=== PATIENT | male | born 1990 | race Caucasian/White ===

== ENCOUNTER 2020-02-04 17:55 | Emergency (ER) | payer MEDICAID, SELFPAY ==
[2020-02-04 17:56] VITALS: BP 109/72; PULSE 95; RESP 16; TEMP 36.6; O2SAT 99; BMI 24.4
--- NOTE | 2020-02-04 18:18 | ED.VIS.GEN ---
History of Present Illness Chief Complaint: Abscess Informant: Patient Narrative: Left bicep swelling. Patient has had 2 weeks of left bicep swelling which is worsening. He denies IV drug abuse. He states the area is getting worse. He has not seen any medical professional for this. Not had any systemic signs or symptoms. He states he tried to smoke a joint to kill his pain earlier but it did not help. Past Medical History - Allergies and Home Meds Allergies/Adverse Reactions: Allergies ketorolac [From Toradol] Allergy (Verified 02/04/20 17:56) Anaphylaxis Penicillins [PCN] Allergy (Verified 02/04/20 17:56) Anaphylaxis Primary Care Physician: NOT,DEFINED [NON-STAFF] - Past Medical History: - - Denies Surgical History: noncontributory Lives: Alone Smoking Status: Current every day smoker Alcohol: Occasional Drugs: Marijuana Review of Systems General: Denies: Chills, Fever, Sweats Eyes: Denies: Visual changes - bilaterally, Diplopia ENT: Denies: Rhinorrhea, Sore throat Cardiovascular: Denies: Chest pain, Palpitations Respiratory: Denies: Dyspnea, Cough, Dyspnea on exertion Gastrointestinal: Denies: Abdominal pain, Nausea, Vomiting, Diarrhea, Melena, Hematochezia Genitourinary: Denies: Dysuria, Hematuria, Frequency Musculoskeletal: Reports: - - Pain and swelling in the left distal biceps region/antecubital fossa. Redness of this area. Skin: Reports: - - Described under musculoskeletal Neurological: Denies: Headache, Weakness Physical Exam Vital Signs/Narrative: Vital Signs Temp Pulse Resp BP Pulse Ox 02/04/20 17:56 97.8 F 95 16 109/72 99 Inital Vital Signs reviewed: Yes General: Unkempt, No Acute Distress Head: Normocephalic, Atraumatic Eyes: Perrl, EOMI ENT: Moist mucous membranes, No rhinorrhea Cardiovascular: Regular rate, Regular rhythm Respiratory: No distress, CTA bilaterally Extremities: - - Tenderness to palpation over the left distal biceps region as well as the antecubital fossa. There is redness overlying this area. Skin: - - Scribe under extremities Neurological: Alert, Oriented x3 Psychological: Normal affect, Normal Mood Diagnostic/Tx/Re-eval - Medical Decision Making She presents with abscess and swelling to the left upper arm and is been worsening for over 2 weeks. Other than feeling more tired than usual he does not have any systemic signs or symptoms. He is not had a fever. His exam is somewhat limited due to the swelling around the area to localize fluctuant mass. X-rays were negative and show no gas. I did perform CT of the upper extremity to localize an area of abscess versus simply cellulitic change. He did have a small abscess on the medial aspect of the biceps. Patient's arm was cleaned with Betadine and left to dry. Using a sterile set up incision and drainage was performed using 6 cc of lidocaine with epinephrine to size the area with good anesthesia achieved. 11 blade scalpel was used to make a 2 cm vertical incision over the area identified on CT. This area was deloculated. It was irrigated with 500 cc of sterile saline. Will be started on Bactrim outpatient. Was given 1 dose of vancomycin in the ED while awaiting his testing. Patient is given wound care instructions and return precautions. Impression: 1. Abscess with surrounding cellulitis ED Disposition - Plan for ED Patient: Disposition: Home or Assisted Living Instructions: ED Abscess Incision And Drainage Prescriptions: Smz/Tmp Ds [Bactrim Ds] 1 tab PO BID #20 tab Prescription Printed Referrals: NOT,DEFINED [NON-STAFF] -
--- NOTE | 2020-02-04 19:25 | RAD_ITS ---
STUDY: X-RAY - LEFT HUMERUS REASON FOR EXAM: Male, 29 years old. Abscess to left AC. Unknown cause. Fatigue. TECHNIQUE: 2 view(s) of the humerus. COMPARISON: Left elbow, 02/04/2020. FINDINGS: Normal visualized humerus. There is no demonstrated fracture or osseous destructive process. The shoulder and elbow are grossly intact. There is no demonstrated soft tissue abnormality. RAD/Humerus min 2 Views IMPRESSION: Normal x-ray examination of the humerus. Electronically Signed: Jarad Doshi DO at 19:56 EDT Tel [phone], Service support ,
--- NOTE | 2020-02-04 19:25 | RAD_ITS ---
STUDY: X-RAY - LEFT ELBOW REASON FOR EXAM: Male, 29 years old. Abscess before meals. Unknown cause. Fatigue. TECHNIQUE: 3 view(s) of the elbow. COMPARISON: None. FINDINGS: Normal visualized humerus, radius and ulna. Normal radiocapitellar and ulnotrochlear articulations. There is no acute fracture, dislocation or destructive osseous pathology. The soft tissue structures are unremarkable. RAD/Elbow min 3 Views IMPRESSION: Normal x-ray examination of the elbow. Electronically Signed: Jarad Doshi DO at 19:56 EDT Tel [phone], Service support ,
[2020-02-04] MEDS: Morphine 4 MG/ML Syringe IV ×2 (20:29→22:58)
[2020-02-04] MEDS: Ondansetron 4 MG/2 ML Vial IM (20:29)
[2020-02-04 20:38] LABS: Absolute Lymphocyte Count 2.13 X10^3/uL (0.83-4.51); Absolute Neutrophil Count 8.3 X10^3/uL (2.0-7.7); Basophil# 0.03 X10^3/uL; Basophil% 0.3 % (0-1); Eosinophil# 0.16 X10^3/uL; Eosinophils% 1.4 % (0-5); Hematocrit 43.1 % (40-54); Hemoglobin 14.2 g/dL (13.0-16.5); Lymphocyte # 2.13 X10^3/ul (4.0); Mean Corp Hgb Conc 32.9 g/dL (32-36); Mean Corpuscular Hgb 31.3 pg (27.0-32.0); Mean Corpuscular Volume 95.1 fL (80-94); Mean Platelet Vol. 9.5 fl (6.2-12.0); Monocyte# 1.19 X10^3/uL; Monocyte% 10.1 % (0-10); NRBC Flagged by Analyzer 0 % (0-5); Neutrophil # 8.26 X10^3/uL (2.7-7.7); Neutrophil % 69.9 % (47-70); Platelet Count 282 K/mm3 (150-450); RBC Distribution Width CV 11.6 % (11.6-14.6); RBC Distribution Width SD 40.2 fl (35.1-43.9); Red Blood Count 4.53 M/mm3 (4.6-6.2); White Blood Count 11.8 K/mm3 (4.4-11.0)
[2020-02-04 20:54] LABS: Anion Gap 2 (5-15); BUN 16 mg/dL (7-18); BUN/Creat Ratio 24.2 RATIO (10-20); Calcium,Total 8.5 mg/dL (8.5-10.1); Chloride 108 mmol/L (98-107); Creatinine, Serum 0.66 mg/dL (0.70-1.30); EST Glomerular Filtration Rate 150 mL/min (>60); Est Glom Filt Rate - Afr Amer 182 mL/min (>60); Estimated Creatinine Clearance 174.31 ml/min; Glucose 94 mg/dL (74-106); Potassium 4.2 mmol/L (3.5-5.1); Sodium Level 138 mmol/L (136-145)
--- NOTE | 2020-02-04 21:33 | CT_ITS ---
STUDY: CT ELBOW WITH IV CONTRAST: LEFT REASON FOR EXAM: Male, 29 years old. MID LT ARM PAIN AND SWELLING X 2 WEEKS,DENIES INJURY -- ? ABSCESS LT AC AND FATIGUE RADIATION DOSAGE (If Supplied By Facility): CTDIvol = ( 24.58 ) mGy, DLP = ( 892.49 ) mGycm. Individualized dose optimization techniques were used for this CT.? TECHNIQUE: Transaxial imaging was sagittal and coronal reconstruction following 100 mL of ISOVUE-370. COMPARISON: Elbow and humerus films of 02/04/2020 FINDINGS: There is a 1.6 x 1.2 x 2.1 cm focal enhancing fluid collection of the lower anterior arm above the antecubital fossa, 4.5 cm above the elbow joint line which is located in the subcutaneous compartment. There is substantial circumferential edematous changes in the subcutaneous compartment of the arm and forearm around the elbow. Negative for underlying muscular mass. Negative for underlying osteolytic or blastic bone lesion. Negative for joint effusion. Negative for foreign body. CT/Extremity Upper WITH Contrast IMPRESSION: 1.6 x 1.2 x 2.1 cm focal enhancing fluid collection of the lower anterior arm just above the antecubital fossa consistent with abscess 4.5 cm above the elbow joint located in the subcutaneous compartment with substantial circumferential edematous changes throughout the subcutaneous compartment of the arm and forearm around the elbow. Negative for muscular mass or abscess, osteolytic or blastic bone lesion, joint effusion or foreign body. Electronically Signed: Abi Oleary MD at 22:23 EDT , Service support ,
--- NOTE | 2020-02-04 22:00 | ED.RN ---
RN INFORMED PATIENT OF NEED FOR URINE SAMPLE. PT DISPLAYS UNDERSTANDING BUT REFUSES TO ATTEMPT.
[2020-02-04 22:12] VITALS: BP 116/81; PULSE 70; RESP 13; O2SAT 98
[2020-02-04 22:26] LABS: Prothrombin Time (Protime)PT. 12.4 SECONDS (11.7-14.9)
[2020-02-04 22:27] LABS: Partial Thromboplast Time 30.7 Seconds (24.1-36.2)
[2020-02-04 22:33] LABS: ALB/GLOB Ratio 0.7 RATIO (0.9-2.4); AST(SGOT) 12 U/L (15-37); Alanine Aminotransfer ALT/SGPT 33 U/L (16-61); Albumin, Serum 3.4 g/dL (3.2-5.0); Alkaline Phosphatase 88 U/L (45-117); Globulin 4.6 g/dL (2.2-4.2)
[2020-02-04 22:49] LABS: Lactic Acid 0.9 mmol/L (0.4-1.9)
[2020-02-04 23:06] LABS: Bacteria 0 SEEN /hpf (None Seen); Mucous, Urine 0 SEEN /hpf (<or=2+); Red Blood Cells-Urine 0 SEEN /hpf (0-5); Squamous Epithelial Cells - UA 0 SEEN /hpf (0-5); White Blood Cells 0 SEEN /hpf (0-5)
[2020-02-04 23:19] VITALS: PULSE 83
[2020-02-04 23:28] LABS: Color, Urine Yellow (Yellow); Glucose, Dipstick Normal (Normal); Ketone-Dipstick Negative (Negative); Leukocyte Esterase-Dipstick Negative /ul (Negative); Nitrite-Dipstick Negative (Negative); Occult Blood-Urine Negative /ul (Negative); Protein-Dipstick Negative (Negative); Urine Bilirubin Dipstick Negative (Negative); Urine Clarity Clear (Clear); Urine Urobilinogen Normal (Normal)
[2020-02-04 23:45] VITALS: BP 116/81; PULSE 76; RESP 13; O2SAT 100
--- NOTE | 2020-02-06 07:50 | ED.RN ---
DR LONDON REVIEWED THE CHART, PT APPROPRIATELY TREATED FOR BLOOD CULTURE RESULTS
== END 2020-02-05 00:02 | disposition home or self-care (01) ==
PROVIDERS: Emergency Provider Student in an Organized Health Care Education/Training Program
DX: L02.414 Cutaneous abscess of left upper limb (principal); L03.114 Cellulitis of left upper limb; F17.200 Nicotine dependence, unspecified, uncomplicated
CPT/HCPCS: 10060; 73060; 73080; 73201; 80053; 81001; 83605; 85025; 85610; 85730; 87040; 87086; 87149; 96361; 96365; 96366; 96372; 96375; 96376; 99284; J7030; J7050; Q9967; A4216; J2405

== ENCOUNTER 2020-05-10 04:16 | Emergency (ER) | payer MEDICAID, SELFPAY ==
[2020-05-10 04:18] VITALS: BP 109/89; PULSE 111; RESP 17; TEMP 36.9; O2SAT 97; BMI 21.6
[2020-05-10] MEDS: LORazepam 2 MG/ML Syringe IM (04:40)
--- NOTE | 2020-05-10 04:41 | ED.DCSUM_ITS ---
History of Present Illness Chief Complaint: Substance Abuse Informant: Patient Narrative: Patient presents thinking he is in drug withdrawal. 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 Denis. He states I am waiting for her to call me in. In the meantime he continues to use daily, he states that started with trying to treat his anxiety. His last use was almost 24 hours ago. He states that he is feeling very shaky, anxious, walking off balance, achy all over especially his back, occasional abdominal cramping. No vomiting, diarrhea, fevers, no recent illness. He is homeless and at the local senior living at this time and was brought by EMS from there. History is very limited, because he is speaking very quickly, is edentulous, and difficult to understand. Past Medical History - Allergies and Home Meds Allergies/Adverse Reactions: Allergies ketorolac [From Toradol] Allergy (Verified 05/10/20 04:23) Anaphylaxis Penicillins [PCN] Allergy (Verified 05/10/20 04:23) Anaphylaxis Primary Care Physician: Care Physician,No Primary [Primary Care Provider] - Lives: Homeless Smoking Status: Current every day smoker Drugs: Heroin, - - Methamphetamine Review of Systems General: Denies: Chills, Fever, Sweats Eyes: Denies: Visual changes - bilaterally, Diplopia ENT: Denies: Rhinorrhea, Sore throat Cardiovascular: Denies: Chest pain, Palpitations Respiratory: Denies: Dyspnea, Cough, Dyspnea on exertion Gastrointestinal: Denies: Abdominal pain, Nausea, Vomiting, Diarrhea, Melena, Hematochezia Genitourinary: Denies: Dysuria, Hematuria, Frequency Musculoskeletal: Reports: Myalgias, Back pain. Denies: Extremity Pain Skin: Denies: Rash, Wounds Neurological: Reports: Headache - off and on, - - off-balance when walking. Denies: Weakness, Numbness Psych: Reports: Anxiety. Denies: Suicidal thoughts Physical Exam Vital Signs/Narrative: Vital Signs Temp Pulse Resp BP Pulse Ox 05/10/20 04:18 98.4 F 111 H 17 109/89 H 97 Inital Vital Signs reviewed: Yes General: Well nourished, Well developed, No Acute Distress Head: Normocephalic, Atraumatic Eyes: Perrl, EOMI - 4-5mm pupils ENT: Moist mucous membranes, No rhinorrhea Neck: Supple, Nontender Cardiovascular: Regular rate, Regular rhythm, No murmurs, Tachycardia - mild Respiratory: No distress, CTA bilaterally, Chest nontender Abdomen: Soft, Nontender, Nondistended, Normal bowel sounds Back: Normal Inspection. Negative for: CVA tenderness Extremities: Nontender, No edema Skin: Normal color, No rash, No Trauma Neurological: Alert, Oriented x3, Cranial nerves II-XII grossly intact, Normal Strength, Normal Sensation, Normal Gait Psychological: Agitated - Significantly increased psychomotor activity. Able to hold a cup with either hand and drink from it, but then sets it down on the floor so that he does not spill it since he is so shaky. Diagnostic/Tx/Re-eval - Medical Decision Making I think the patient's main issue here is drug dependence and withdrawal. He was given Ativan to help with his symptoms and agitation, I suspect that he would tolerate Ativan given his history of drug abuse, so he was given 2 mg IM, which sedated him more than expected, but not dangerously. He was observed until the end of shift, his vital signs improved including his tachycardia, and the plan will be to continue observing him until he wakes up and discharged him home if able to ambulate on his own safely. ED Disposition - Plan for ED Patient: Disposition: Home or Assisted Living Diagnosis: Drug withdrawal Instructions: ED Drug Abuse Referrals: [facility] [STAFF PHYSICIAN] - As soon as possible
[2020-05-10 06:24] VITALS: PULSE 96; O2SAT 94
[2020-05-10 09:00] VITALS: BP 109/89; PULSE 81; RESP 18; O2SAT 99
== END 2020-05-10 09:01 | disposition home or self-care (01) ==
PROVIDERS: Emergency Provider Emergency Medicine
DX: F11.23 Opioid dependence with withdrawal (principal); F15.23 Other stimulant dependence with withdrawal; F41.9 Anxiety disorder, unspecified; Z59.0 Homelessness; F17.200 Nicotine dependence, unspecified, uncomplicated
CPT/HCPCS: 96372; 99284; A4216

== ENCOUNTER 2020-09-16 16:19 | Emergency (ER) | payer MEDICAID, SELFPAY ==
[2020-09-16 16:20] VITALS: BP 132/63; PULSE 90; RESP 18; TEMP 36.4; O2SAT 100; BMI 21.5
--- NOTE | 2020-09-16 17:27 | EKG12_ITS ---
Test Reason : SUICIDAL Blood Pressure : / mmHG Vent. Rate : 078 BPM Atrial Rate : 078 BPM P-R Int : 160 ms QRS Dur : 082 ms QT Int : 356 ms P-R-T Axes : 076 098 065 degrees QTc Int : 405 ms Normal sinus rhythm Rightward axis Poor R wave progression Borderline ECG Confirmed by ODETTE PEÑA, TAE ([id number]), editor in chief newspaper NICK HYDE ([id number]) on 09/20/2020 2:55:34 PM Referred By: FEROZ/DALLAS Confirmed By:TAE PINO MD
[2020-09-16 17:55] LABS: Absolute Lymphocyte Count 1.56 X10^3/uL (0.83-4.51); Absolute Neutrophil Count 5.7 X10^3/uL (2.0-7.7); Basophil# 0.03 X10^3/uL; Basophil% 0.4 % (0-1); Eosinophil# 0.07 X10^3/uL; Eosinophils% 0.8 % (0-5); Hematocrit 46.2 % (40-54); Hemoglobin 15.5 g/dL (13.0-16.5); Lymphocyte # 1.56 X10^3/ul (0.83-4.51); Lymphocyte % 18.9 % (19-41); Mean Corp Hgb Conc 33.5 g/dL (32-36); Mean Corpuscular Hgb 32.3 pg (27.0-32.0); Mean Corpuscular Volume 96.3 fL (80-94); Mean Platelet Vol. 9.5 fl (6.2-12.0); Monocyte# 0.89 X10^3/uL; Monocyte% 10.8 % (0-10); NRBC Flagged by Analyzer 0 % (0-5); Neutrophil % 68.9 % (47-70); Platelet Count 249 K/mm3 (150-450); RBC Distribution Width CV 11.9 % (11.6-14.6); RBC Distribution Width SD 42.4 fl (35.1-43.9); White Blood Count 8.3 K/mm3 (4.4-11.0)
--- NOTE | 2020-09-16 18:00 | CM.ED ---
Addendum entered by Faith Matos 09/18/20 10:56: Note completed by Faith GUERREROCHARLY Original Note: Social Work Referral Referral Source: [facility] Referral reason: Suicidal NIKKI (Ampoule Filler) met with patient and completed assessment. Patient needs inpatient psychiatric placement. MD agreed. SW called [facility] and made referral for inpatient psych (alcohol and drug treatment and mental health). NIKKI faxed referral form to [place]. ([facility]) SW spoke to patient and explained that he needed inpatient psychiatric treatment. He denied heroin use. He told this medical technical writer apparently I am not the only one that needs psychiatric treatment. SW received call back from [facility]. They can accept him. NIKKI got name of admitting MD and who to call for report. NIKKI filled out transfer sheet and provided it to MD for signature. NIKKI gave RN name of facilty and RN to RN information. NIKKI advised patient he is going to [facility] for drug and mental health treatment. line technician and MD as well as patient's nurse were all updated that patient is going to [facility]. NIKKI called [facility] back and advised of patient's time of release so they could plan for staffing needs. Plan: Patient was discharged to inpatient psychiatric facilty, [facility] due to suicidal ideation.
[2020-09-16 18:17] LABS: Anion Gap 3 (5-15); BUN 13 mg/dL (7-18); BUN/Creat Ratio 16.9 RATIO (10-20); Chloride 106 mmol/L (98-107); Creatinine, Serum 0.77 mg/dL (0.70-1.30); EST Glomerular Filtration Rate 125 mL/min (>60); Est Glom Filt Rate - Afr Amer 152 mL/min (>60); Estimated Creatinine Clearance 139.09 ml/min; Glucose 104 mg/dL (74-106); Potassium 3.9 mmol/L (3.5-5.1); Sodium Level 138 mmol/L (136-145)
--- NOTE | 2020-09-16 18:33 | EX.ED.VIS.PS ---
HPI HPI - Psych History of Present Illness Chief Complaint: Suicidal Informant: patient Onset/Context/Timing Onset: Month(s) Conflict: - (Patient states his girlfriend left him) Timing: Continuous Worsened by: Situational factors Associated Symptoms Associated Symptoms - Psych: Positive for Depressed, Change in Eating, Change in sleeping, Decreased Interest and Suicidal Thoughts; Negative for Visual Hallucinations and Auditory Hallucinations Specific plan (suicidal thought): Patient denies any specific plan Narrative Narrative: Patient presents with suicidal ideations that have been getting worse over the past month. Patient states his girlfriend left him which caused him to feel depressed and suicidal. Patient did denies any specific plan for suicide to me. utility worker forge reported that patient told him that he did have some guns and he knew where they were. Patient denies any visual or auditory hallucinations. Patient admits to decreased appetite and patient states she has not slept in the last 6 days. [facility] Medical History Anxiety Asthma Depression Substance abuse Home Medications NK 09/16/20 [History Last Taken Unknown] Allergy/AdvReac Type Severity Reaction Status Date / Time ketorolac [From Toradol] Allergy Anaphylaxis Verified 09/16/20 16:22 Penicillins [PCN] Allergy Anaphylaxis Verified 09/16/20 16:22 Surgical History History of appendectomy Social History Smoking Status: Current every day smoker [facility] ED Constitutional Constitutional ED: Denies chills or fever(s) Eyes Eyes: Denies blurry vision or change in vision ENT ENT ED: Denies rhinorrhea or sore throat Cardiovascular Cardiovascular: Reports chest pain; Denies palpitations Respiratory/Chest Respiratory/Chest: Denies cough or dyspnea Gastrointestinal Gastrointestinal: Denies nausea or vomiting Genitourinary Genitourinary ED: Denies dysuria or hematuria Musculoskeletal Musculoskeletal: Reports back pain and neck pain Integumentary Denies abscess or rash Neurologic Neurologic: Denies headache(s) or weakness Psychiatric Psychiatric: Reports depression and suicidal thoughts Allergic/Immunologic Allergic/Immunologic ED: Denies mouth swelling or urticaria EXAM Physical Exam Const Vital Signs: 09/16/20 16:20 09/16/20 18:49 09/16/20 19:00 Temperature 97.6 F L Temperature Source Temporal Pulse Rate 90 Respiratory Rate 18 14 16 Blood Pressure 132/63 H Blood Pressure Mean 86 Pulse Ox 100 Oxygen Delivery Method Room Air 09/16/20 21:05 09/16/20 22:21 Temperature Temperature Source Pulse Rate 72 Respiratory Rate 16 16 Blood Pressure 128/74 H Blood Pressure Mean 92 Pulse Ox 99 Oxygen Delivery Method Positive well nourished and well developed General Appearance ED: well developed HEENT normocephalic and atraumatic Neck supple and no JVD Resp normal respiratory effort and clear to auscultation bilaterally Cardio no murmurs Rate: regular rate Rhythm: regular rhythm GI non-tender and non-distended Auscultation: normoactive bowel sounds Palpation: soft Extremity normal to inspection General Extremety ED: Negative for edema or tenderness General Extremity: Negative for edema Neuro oriented x3, CN's II-XII intact bilaterally and no sensory deficits noted Sensorium / Orientation: alert Motor Exam: strength 5/5 throughout Psych mental status grossly normal Activity / Motor Behavior: avoids eye contact Speech: minimal and soft Mood & Affect: depressed and flat affect Thought Content: suicidality MDM MDM MDM Narrative Medical decision making narrative: EKG was obtained. On my interpretation, it showed a normal sinus rhythm with a rate of 78. ID interval, QRS interval, and QTc intervals were all normal. Otis was normal. There are no acute ST or T wave changes. CBC was normal. Basic metabolic profile was normal. Urinalysis does not show any evidence of urinary tract infection. Urine toxin was positive for amphetamines and cannabinoids. Serum alcohol level was normal. Social work was in to evaluate the patient. She was able to place the patient in a psychiatric facility. Patient will be transferred there. [place] slip was placed on the chart. Patient understood and was agreeable with the plan. All questions were answered. Lab Data Labs: Laboratory Results - last 24 hr 09/16/20 09/16/20 09/16/20 17:35 17:35 17:35 WBC 8.3 RBC 4.80 Hgb 15.5 Hct 46.2 MCV 96.3 H MCH 32.3 H MCHC 33.5 RDW Std Deviation 42.4 RDW Coeff of Bonifacio 11.9 Plt Count 249 MPV 9.5 Immature Gran % (Auto) 0.200 Neut % (Auto) 68.9 Lymph % (Auto) 18.9 L [place] % (Auto) 10.8 H Eos % (Auto) 0.8 Baso % (Auto) 0.4 Absolute Neuts (auto) 5.7 Absolute Lymphs (auto) 1.56 Nucleated RBC % 0 Sodium 138 Potassium 3.9 Chloride 106 Carbon Dioxide 29.0 Anion Gap 3 L BUN 13 Creatinine 0.77 Estim Creat Clear Calc 139.09 Est GFR (MDRD) Af Amer 152 Est GFR (MDRD) Non-Af 125 BUN/Creatinine Ratio 16.9 Glucose 104 Calcium 9.0 Urine Color Urine Clarity Urine pH Ur Specific [place] Urine Protein Urine Glucose (UA) Urine Ketones Urine Occult Blood Urine Nitrite Urine Bilirubin Urine Urobilinogen Ur Leukocyte Esterase Urine RBC Urine WBC Ur Squamous Epith Cells Urine Bacteria Urine Mucus Urine Opiates Screen Urine Methadone Screen Ur Barbiturates Screen Ur Phencyclidine Scrn Ur Amphetamines Screen U Methamphetamin-MDMA U Benzodiazepines Scrn Urine Cocaine Screen U Cannabinoids Screen Ur Drug Screen Comment Ethyl Alcohol 6.0 09/16/20 09/16/20 20:05 20:05 WBC RBC Hgb Hct MCV MCH MCHC RDW Std Deviation RDW Coeff of [place] Plt Count MPV Immature Gran % (Auto) Neut % (Auto) Lymph % (Auto) [place] % (Auto) Eos % (Auto) Baso % (Auto) Absolute Neuts (auto) Absolute Lymphs (auto) Nucleated RBC % Sodium Potassium Chloride Carbon Dioxide Anion Gap BUN Creatinine Estim Creat Clear Calc Est GFR (MDRD) Af Amer Est GFR (MDRD) Non-Af BUN/Creatinine Ratio Glucose Calcium Urine Color Yellow Urine Clarity Clear Urine pH 6.0 Ur Specific [place] 1.015 Urine Protein Negative Urine Glucose (UA) Normal Urine Ketones Negative Urine Occult Blood 50 H Urine Nitrite Negative Urine Bilirubin Negative Urine Urobilinogen Normal Ur Leukocyte Esterase 25 H Urine RBC 10-25 SEEN Urine WBC 0-5 SEEN Ur Squamous Epith Cells 0 SEEN Urine Bacteria 0 SEEN Urine Mucus 0 SEEN Urine Opiates Screen NEGATIVE Urine Methadone Screen NEGATIVE Ur Barbiturates Screen NEGATIVE Ur Phencyclidine Scrn NEGATIVE Ur Amphetamines Screen POSITIVE H U Methamphetamin-MDMA NEGATIVE U Benzodiazepines Scrn NEGATIVE Urine Cocaine Screen NEGATIVE U Cannabinoids Screen POSITIVE H Ur Drug Screen Comment Ethyl Alcohol EKG Initial EKG: Attestation: I personally reviewed and interpreted this EKG as follows: Interpretation: Sinus Rhythm (78) and No Acute Injury Pattern Discharge Plan Triage Chief Complaint: Suicidal ED Provider: Allen Perez Dx/Rx/DC Orders Clinical Impression: Depression with suicidal ideation Prescriptions: No Action NK RF: 0 Primary Care Provider: Care Physician,No Primary Referrals: Care Physician,No Primary [Primary Care Provider] - Disposition Disposition: Psychiatric Hospital or Unit Discharge Location: [facility] Discharge Date/Time: 09/16/20 22:22
[2020-09-16 18:49] VITALS: RESP 14
[2020-09-16 19:00] VITALS: RESP 16
--- NOTE | 2020-09-16 19:01 | CASEMGMT ---
SOCIAL WORK ASSESSMENT [facility] ? Reason for Consult: [facility] stated that they a phone call from a watch train assembler regarding patient. Faith said that patient reported that he is suicidal and attempted this morning but the rope ?wasn?t strong enough?. Faith said that they advised to bring the patient to [place] ED. ?Faith said that the watch train assembler felt comfortable enough bringing patient to the ED for evaluation. ? Chief Compliant: Patient reports that he is ?suicidal?. Patient reports a current feeling g suicidal. Patient confirmed that he was trying to strangle himself, but it broke this am. Patient said that ?I am exhausted. I have not slept?. ? Marital/Social History: Single. Patient reports he was supposed to get ?a couple of months ago? but him and his fianc??, Bhakti, broke up one month ago. ? Living Situation: Patient is homeless. He reports he slept under a bridge last night. He reported that him and his ex were planning to get a house. ? Support/Resources: Patient reports he support is his ?ex? Bhakti. Patient was asked about family and he said, ?they are all ?. ? History: None ? Education and Employment History: Patient reports he graduated [employer]. He reports no college. He reports no IEP but states he has difficulty with comprehension. Patient reports no issues with reading. ?Patient reports he is not employed. He was unable to tell this news writer the last time he was employed. 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 ? Mental Health Treatment/History: Patient reports no previous Mental health treatment. Patient reports No mental health counseling. Patient reports no inpatient psychiatric hospitalization. ? Triggers/Stressors: Patient said that his symptoms began 1 month ago when his fianc??, Bhakit, broke up with him. Patient said that his stressors are ?not seeing her?. Patient said ?I see her. I see her face everywhere?. SW asked where patient ?sees? Bhakti and he said ?in different places. glass reflection?. ? Coping Skills: ?myself?? and reports ?nothing that helps? ? Abuse Issues: Denied ? Substance Abuse History: Patient reports use of heroin with last use 2 days ago. He reports using 1 gram of heroin a day. Patient was asked about substance abuse treatment and he said, ?I would if I had a problem.? ? Risk to Self/Others: Suicidal- Patient reports he is still suicidal and when he attempted to strange himself, he was thinking ?maybe if I was , I would feel better?. Homicidal-None No reported violence to self, others or objects. Patient reports no previous suicide attempts. ? SW asked about access to guns and patient said ?yeah?. When asked where the guns where he said ?places? ? Mental Status Exam: Orientation-Patient knew year, name and place. He said he had ?no idea? abut the date. Memory- impaired ? Appearance/General Behavior: Disheveled, unclean, calm Mood/Affect: depressed. Patient said that his mood is ?very depressed.? Communication Pattern: Responds to questions. Had to be encouraged to stay awake for questions. Mumbled at times. Thought Process: Answered questions. No evidence of AH/VH and reports no AH/VH. General Intellectual Functioning: Average Judgment: Poor ? Assessment: ? Patient said that he went [facility] this morning to try to see his ex-fianc?, Bhakti. He said, ?I was hoping I would see her?. Patient said, ?I would apologize for what I did wrong?. SW asked what patient did wrong and he said, ?I don?t know?.? Patient stated that he has had the symptoms for 1 month and ?nothing makes sense? Patient reports he is ?very depressed?. Patient reports anxiety and feeling he ?can?t breathe?. Patient said ?I feel it happening now. like an elephant is on my chest?. Patient reports traumatic stress but refused to elaboration. Patient said that he holds his anger ?in? but reports agitation. Patient reports impulsivity but was unable to identify as to what he is impulsive about. Patient was asked about AH/VH and he said, ?all the time? and referenced his ex-fianc?. Patient denied mood swings. Patient said he does not have substance abuse or issues and said, ?I just use it to mask? and stated he did not feel he needed assistance for substance abuse. Patient said that he has not slept for 6 days. Patient said that his stressors are ?life?. Patient reports no significant health issues. Patient said that he slept under a bridge last night. ? Later patient reports use of meth which he stated was 2 days ago. ? ? Plan: Referral to inpatient psychiatric unit for substance abuse and psychiatric treatment. ? Faith LOVE
[2020-09-16 20:27] LABS: Bacteria 0 SEEN /hpf (None Seen); Mucous, Urine 0 SEEN /hpf (<or=2+); Squamous Epithelial Cells - UA 0 SEEN /hpf (0-5)
[2020-09-16 20:37] LABS: Amphetamine Urine VISTA POSITIVE (<1000 ng/mL); Barbiturate Urine VISTA NEGATIVE (< 200 ng/mL); Benzodiazepine Urine VISTA NEGATIVE (< 200 ng/mL); Cocaine Urine VISTA NEGATIVE (< 300 ng/mL); Ecstacy Urine VISTA NEGATIVE (< 500 ng/mL); Methadone Urine VISTA NEGATIVE (< 300 ng/mL); PCP Urine VISTA NEGATIVE (< 25 ng/mL); THC Urine VISTA POSITIVE (< 50 ng/mL); Vista UDS pH Range 6
[2020-09-16 20:41] LABS: Color, Urine Yellow (Yellow); Glucose, Dipstick Normal (Normal); Ketone-Dipstick Negative (Negative); Leukocyte Esterase-Dipstick 25 /ul (Negative); Nitrite-Dipstick Negative (Negative); Occult Blood-Urine 50 /ul (Negative); Protein-Dipstick Negative (Negative); Specific Gravity, Urine 1.015 (1.002-1.030); Urine Bilirubin Dipstick Negative (Negative); Urine Clarity Clear (Clear); Urine Urobilinogen Normal (Normal)
[2020-09-16 20:48] LABS: Red Blood Cells-Urine 10-25 SEEN /hpf (0-5); White Blood Cells 0-5 SEEN /hpf (0-5)
[2020-09-16 21:05] VITALS: BP 128/74; PULSE 72; RESP 16; O2SAT 99
[2020-09-16 22:21] VITALS: RESP 16
== END 2020-09-16 22:22 ==
LOC: ED 18:17
PROVIDERS: Emergency Provider Emergency Medicine
DX: F32.9 Major depressive disorder, single episode, unspecified (principal); R45.851 Suicidal ideations; F41.9 Anxiety disorder, unspecified; J45.909 Unspecified asthma, uncomplicated; F17.200 Nicotine dependence, unspecified, uncomplicated
CPT/HCPCS: 80048; 80307; 81001; 82077; 85025; 87426; 93005; 99285

== ENCOUNTER 2022-12-28 19:58 | Emergency (ER) | payer MEDICAID, SELFPAY ==
[2022-12-28 19:59] VITALS: BP 123/90; PULSE 98; RESP 18; TEMP 36.8; O2SAT 100; BMI 22.3
--- NOTE | 2022-12-28 22:45 | EX.ED.DYSGE1 ---
HPI History of Present Illness Chief Complaint: Abscess Informant: patient Narrative Narrative: Presents with abscess to his left upper arm. He states he tried to inject methamphetamines. He knew it did not go in the right spot so he pulled the needle out. It sounds like this occurred 2 or 3 days ago. It is now swollen and red. He denies fevers chills nausea or vomiting. He has never had problems with heart valve infections. He has had abscesses drained in the past. He is eating and drinking normally. [facility] Medical History Anxiety Asthma Depression Substance abuse Home Medications doxycycline monohydrate 100 mg capsule 100 mg PO BID #20 CAPSULES 12/28/22 [Rx Last Taken Unknown] Allergy/AdvReac Type Severity Reaction Status Date / Time ketorolac [From Toradol] Allergy Anaphylaxis Verified 12/28/22 20:01 Penicillins [PCN] Allergy Anaphylaxis Verified 12/28/22 20:01 Surgical History History of appendectomy Social History Smoking Status: Current every day smoker tobacco type: cigarettes ROS ROS ED Constitutional Constitutional ED: Denies chills, fever(s), subjective or sweats ENT ENT ED: Denies rhinorrhea Cardiovascular Cardiovascular: Denies chest pain, palpitations, paroxysmal nocturnal dyspnea or racing heartbeat Respiratory/Chest Respiratory/Chest: Denies cough, dyspnea, dyspnea on exertion or paroxysmal nocturnal dyspnea Gastrointestinal Gastrointestinal: Denies nausea or vomiting Musculoskeletal Musculoskeletal: Denies myalgias Integumentary Reports abscess Neurologic Neurologic: Denies headache(s), paresthesias or weakness Hematologic/Lymphatic Hematologic/Lymphatic: Denies easy bleeding, easy bruising or lymphadenopathy Allergic/Immunologic Allergic/Immunologic ED: Denies urticaria EXAM Physical Exam Narrative Exam Narrative: Patient awake alert sitting in the room comfortable. HEENT shows no trauma. Mucous membranes are moist. Neck is supple. Heart is regular. Not tachycardic. I hear no murmur. No muffled tones. Lungs are clear. No pain with a deep breath. Saturations are normal 100% on room air showing no hypoxia. Abdomen is soft nontender. Extremities show no deformity. See skin exam below. Skin: Overlying the left anterior upper arm at the distal bicep area a little proximal to the antecubital fossa is an area of erythema. There seems to be a soft fluctuant area that is about 1 x 2 cm. There is about 2 cm of surrounding erythema. But it does not track up into the axilla at this time. I did check pulses distally and capillary refill and sensation and they are all normal. But this does appear to be cutaneous abscess that would benefit from draining. Const Vital Signs: 12/28/22 19:59 Temperature 98.3 F Temperature Source Temporal Pulse Rate 98 Respiratory Rate 18 Blood Pressure 123/90 H Blood Pressure Mean 101 Pulse Ox 100 Oxygen Delivery Method Room Air MDM MDM MDM Narrative Medical decision making narrative: Discussed options with the patient. I explained that drainage would be appropriate numbness and he should resolve sooner. I will treat him with doxycycline. He evidently has anaphylaxis to penicillin is not sure if he can tolerate cephalosporins. He thinks he might not be able to. We will avoid this due to the risk. Procedure: Incision and drainage of abscess: The area around the abscess was sterilely prepped and draped. It was scrubbed with Shyasmine-Clens. It was anesthetized with a total of 5 cc of 1% lidocaine locally. Patient tolerated this reasonably well. It was then scrubbed again. An 11 blade was used to incise over the center soft portion of the abscess avoiding the tattoo as per the patient's request. We got a good release of purulent material. Hemostats were used to break up any loculations. We milked the area. I then irrigated it and broke up loculations again. Irrigated it once again. We then placed a gauze into this. Explained patient the plan of the care and removal of gauze in 2 to 3 days. We discussed reasons to return that would include worsening swelling, pain, fevers, vomiting or any other concerns. Discharge Plan Triage Chief Complaint: Abscess ED Provider: Kenneth Suggs Dx/Rx/DC Orders Clinical Impression: Drug abuse, IV, Cellulitis of arm, left, Encounter for incision and drainage procedure, Abscess of arm, left Instructions: ED Abscess Incision And Drainage Prescriptions: New doxycycline monohydrate 100 mg capsule 100 mg PO BID Qty: 20 0RF Primary Care Provider: Care Physician,No Primary Referrals: Sonido Ferreira MD [Med Staff - Set Up Technician] - 3-5 Days if not improving Care Physician,No Primary [Primary Care Provider] - Disposition Disposition: Home, Self Care
[2022-12-28] MEDS: Lidocaine 1% (20 ml mdv) 20 ML Vial INFILT (22:52)
[2022-12-28] MEDS: Doxycycline 100 MG CAPSULE PO (22:52)
[2022-12-28] MEDS: Ibuprofen 200 MG Tablet 400 MG PO (23:33)
== END 2022-12-28 23:47 | disposition home or self-care (01) ==
PROVIDERS: Emergency Provider Emergency Medicine; Visit Provider Emergency Medicine
DX: L02.414 Cutaneous abscess of left upper limb (principal); F15.10 Other stimulant abuse, uncomplicated; L03.114 Cellulitis of left upper limb; J45.909 Unspecified asthma, uncomplicated; F32.A Depression, unspecified; F41.9 Anxiety disorder, unspecified; F17.210 Nicotine dependence, cigarettes, uncomplicated; Z88.0 Allergy status to penicillin
CPT/HCPCS: 10060; 99283

== ENCOUNTER 2023-01-09 17:02 | Emergency (ER) | payer MEDICAID, SELFPAY ==
[2023-01-09 17:02] VITALS: BP 127/88; PULSE 99; RESP 18; TEMP 36.1; O2SAT 100; BMI 22.3
--- NOTE | 2023-01-09 19:13 | CT_ITS ---
INDICATION: neck pain EXAMINATION: CT CERVICAL SPINE - CT Spine Cervical W/O Contrast Injection TECHNIQUE: Helically acquired images were obtained of the cervical spine. 2D reformatted images were reviewed. A radiation dose optimization technique was used for this scan. IV Contrast dosage and agent: None. COMPARISON: None. FINDINGS: VERTEBRAE: No fracture or traumatic subluxation. No discrete lytic or blastic abnormality. Normal alignment. Normal craniocervical junction and cervicothoracic junction. DISCS and SPINAL CANAL: Disc heights are preserved. No critical stenosis. NECK SOFT TISSUES: No prevertebral soft tissue swelling. There is no cervical adenopathy. LUNG APICES: Clear. CT/Spine Cervical without Contras IMPRESSION: No evidence of acute cervical spinal fracture or spondylolisthesis. Electronically Signed: Kwame Johnston MD at 20:07 EDT ,
[2023-01-09] MEDS: HYDROcodone Bitartrate/Apap 5/325 Tablet PO (19:34)
--- NOTE | 2023-01-09 19:41 | CT_ITS ---
EXAMINATION : Head CT w/out contrast HISTORY : head injury COMPARISON : None. TECHNIQUE : Multiple contiguous axial images were obtained from the skull base to the vertex without intravenous contrast. A radiation dose optimization technique was used for this scan. FINDINGS : The ventricles and sulci are normal in size. There is no evidence for acute intracranial hemorrhage, mass effect, or midline shift. There is no extra-axial fluid collection. There is normal smith-white differentiation, without CT evidence of acute ischemia or infarct. The skull base and calvarium are unremarkable. The orbits are unremarkable. The paranasal sinuses are clear. The mastoid air cells are well-aerated. The soft tissues are unremarkable. CT/Brain/Head without Contrast IMPRESSION: No acute intracranial abnormality. Electronically Signed: Kwame Johnston MD at 20:06 EDT ,
--- NOTE | 2023-01-09 19:45 | RAD_ITS ---
INDICATION: pain EXAMINATION/TECHNIQUE: X-RAY - LEFT XR Shoulder Min 2 Views 4 VIEWS COMPARISON: No relevant prior comparison study available FINDINGS: SOFT TISSUES: Mild soft tissue swelling of the shoulder. No radiopaque foreign body. BONES/JOINTS: Acute nondisplaced fracture of the distal third clavicle.. Normal alignment. Preservation of the joint space.. No sclerotic or destructive changes observed. RAD/Shoulder min 2 Views IMPRESSION: Acute nondisplaced fracture of the distal third clavicle.. Electronically Signed: Kwame Johnston MD at 20:18 EDT ,
--- NOTE | 2023-01-09 21:09 | CM.ED ---
Social Work Note Referral Source: case find Referral Reason: no PCP SW met with patient and introduced herself and role as [facility] Elderly Companion. Patient lying on hospital bed and agreeable to speak with SW. SW inquired about patient's insurance and current PCP. Patient verified insurance and reports no current PCP. SW provided patient with a list of local PCPs in network with patient's insurance and accepting new patients. SW also reviewed [facility] resource list as patient is currently staying at [facility]. Patient falling asleep during interaction but is receptive towards lists and voiced no other needs. SW remains available if needs arise. Maritza Duckworth DYE WORKER, [place]
[2023-01-09 21:11] VITALS: RESP 16
--- NOTE | 2023-01-09 22:39 | EDS_ITS ---
HPI HPI - Fall History of Present Illness Chief Complaint: Fall Narrative Narrative: Patient lives at the [facility]. He reports he fell off the top bunk. He does not remember this because he was asleep. He complains of left shoulder pain and left clavicular pain. He also hit his head and is complaining some neck pain. No paresthesias. He is not on any blood thinners. He denies any significant medical history PFSH PFSH Medical History Anxiety Asthma Depression Substance abuse Home Medications doxycycline monohydrate 100 mg capsule 100 mg PO BID #20 CAPSULES 12/28/22 [Rx Last Taken Unknown] hydrocodone-acetaminophen 5-325mg 5mg-325mg 1 tab PO Q4H PRN PRN Pain 3 days #12 TABLETS 01/09/23 [Rx Last Taken Unknown] Allergy/AdvReac Type Severity Reaction Status Date / Time ketorolac [From Toradol] Allergy Anaphylaxis Verified 01/09/23 17:04 Penicillins [PCN] Allergy Anaphylaxis Verified 01/09/23 17:04 Surgical History History of appendectomy History of skin graft Social History Smoking Status: Current every day smoker tobacco type: cigarettes ROS ROS ED Constitutional Constitutional ED: Denies chills, fever(s) or sweats Eyes Eyes: Denies blurry vision or change in vision ENT ENT ED: Denies ear pain or sore throat Cardiovascular Cardiovascular: Denies chest pain, palpitations or racing heartbeat Respiratory/Chest Respiratory/Chest: Denies cough, dyspnea or sputum Gastrointestinal Gastrointestinal: Denies abdominal pain, constipation, diarrhea, nausea or vomiting Genitourinary Genitourinary ED: Denies dysuria, hematuria or urinary frequency Musculoskeletal Musculoskeletal: Reports neck pain and other Details: Left shoulder pain ; Denies arthralgias or myalgias Integumentary Denies abscess, Abrasions or rash Neurologic Neurologic: Reports headache(s); Denies paresthesias or weakness Psychiatric Psychiatric: Denies anxiety, depression, suicidal ideation or suicidal thoughts Endocrine Endocrinology: Denies polydipsia or polyuria EXAM Physical Exam Const Vital Signs: 01/09/23 17:02 01/09/23 18:22 01/09/23 21:11 Temperature 97 F L Temperature Source Temporal Pulse Rate 99 Respiratory Rate 18 16 Respiratory Effort Normal Respiratory Depth Normal Respiratory Pattern Normal Blood Pressure 127/88 H Blood Pressure Mean 101 Pulse Ox 100 Oxygen Delivery Method Room Air Room Air Positive well nourished General Appearance ED: NAD HEENT Reports normocephalic and TM's normal bilaterally atraumatic Eyes PERRL and EOMs intact bilaterally Chest Wall Chest Narrative: Tenderness to palpation over left distal clavicle. No skin tenting. No bruising Resp normal respiratory effort and no retractions Cardio regular rate and regular rhythm Extremity Extremity Narrative: Left shoulder is nontender to palpation. The shoulder is intact. Pain elicited with motion of the distal clavicle. Neuro oriented x3 and CN's II-XII intact bilaterally Sensorium / Orientation: alert Motor Exam: strength 5/5 throughout Psych mental status grossly normal MDM MDM MDM Narrative Medical decision making narrative: 32-year-old male with fall from his bunk bed which is on top apparently. Complaint of headache and neck pain as well as left shoulder pain. Patient given [place]. CT brain and cervical spine are negative. CT of the left shoulder shows a nondisplaced left distal clavicular fracture my interpretation. Radiologist interprets this and agrees. He will be given pain medication for home. Patient has sling. He is given orthopedic follow-up. Return precaution discussed. Impression: 1 fall 2. Closed head injury 3. Cervical strain 4. Left clavicle fracture Lab Data Attestation: I reviewed the patient's lab results. Radiography Diagnostic Testing: Clinical Impression(s) from Imaging Studies Cervical Spine CT 01/09/23 19:13 IMPRESSION: No evidence of acute cervical spinal fracture or spondylolisthesis. Electronically Signed: Kwame Johnston MD at 20:07 EDT , Brain CT 01/09/23 19:41 IMPRESSION: No acute intracranial abnormality. Electronically Signed: Kwame Johnston MD at 20:06 EDT , Shoulder X-Ray 01/09/23 19:45 IMPRESSION: Acute nondisplaced fracture of the distal third clavicle.. Electronically Signed: Kwame Johnston MD at 20:18 EDT , Discharge Plan Triage Chief Complaint: Fall ED Provider: Yehuda Sarabia Dx/Rx/DC Orders Instructions: ED Fracture, Clavicle Prescriptions: New hydrocodone-acetaminophen 5-325 mg tablet 1 tab PO Q4H PRN PRN (Reason: Pain) 3 Days Qty: 12 0RF No Action doxycycline monohydrate 100 mg capsule 100 mg PO BID Qty: 20 0RF Primary Care Provider: Care Physician,No Primary Referrals: Ralf Edge DO [Med Staff - Active Staff] - 3-5 Days suture removal Care Physician,No Primary [Primary Care Provider] - Disposition Disposition: Home, Self Care Discharge Date/Time: 01/09/23 21:12
== END 2023-01-09 21:12 | disposition home or self-care (01) ==
PROVIDERS: Emergency Provider Student in an Organized Health Care Education/Training Program; Visit Provider Student in an Organized Health Care Education/Training Program
DX: S42.032A Displaced fracture of lateral end of left clavicle, initial encounter for closed fracture (principal); S16.1XXA Strain of muscle, fascia and tendon at neck level, initial encounter; S09.90XA Unspecified injury of head, initial encounter; W19.XXXA Unspecified fall, initial encounter; W06.XXXA Fall from bed, initial encounter; Y93.84 Activity, sleeping; Y92.89 Other specified places as the place of occurrence of the external cause; F32.A Depression, unspecified; F41.9 Anxiety disorder, unspecified; F17.210 Nicotine dependence, cigarettes, uncomplicated; Z79.899 Other long term (current) drug therapy
CPT/HCPCS: 70450; 72125; 73030; 99283

== ENCOUNTER 2023-03-18 05:49 | Emergency (ER) | payer MEDICAID, SELFPAY ==
[2023-03-18 05:50] VITALS: BP 127/78; PULSE 84; RESP 20; TEMP 36.1; O2SAT 99; BMI 21.4
--- NOTE | 2023-03-18 06:01 | EDS_ITS ---
HPI History of Present Illness Chief Complaint: Flank Pain Informant: patient Onset/Context/Timing Onset: Days (5) Context: Gradual Onset Timing: Intermittent Quality: Cramping Location: Right flank Worsened by: Ambulation Relieved by: Rest Narrative Narrative: Patient presents with right flank pain that has been getting worse over the last 5 days. Patient states it is intermittent. Patient states it feels like it is cramping. Patient states it is worse with ambulation and better with rest. Patient denies any fevers or chills. Patient states he had some discolored urine recently. Patient denies any fevers but admits to some subjective chills. Patient admits to a recent cough. Patient also admits to some rhinorrhea. Patient denies any nausea or vomiting. [facility] Medical History Anxiety Asthma Depression Substance abuse Home Medications NK 03/18/23 [History Last Taken Unknown] Allergy/AdvReac Type Severity Reaction Status Date / Time ketorolac [From Toradol] Allergy Anaphylaxis Verified 01/09/23 17:04 Penicillins [PCN] Allergy Anaphylaxis Verified 01/09/23 17:04 Surgical History History of appendectomy History of skin graft Social History Smoking Status: Current every day smoker tobacco type: cigarettes ROS ROS ED Constitutional Constitutional ED: Denies chills or fever(s) Eyes Eyes: Denies blurry vision or change in vision ENT ENT ED: Reports rhinorrhea; Denies sore throat Cardiovascular Cardiovascular: Denies chest pain or palpitations Respiratory/Chest Respiratory/Chest: Reports cough; Denies dyspnea Gastrointestinal Gastrointestinal: Denies nausea or vomiting Genitourinary Genitourinary ED: Denies dysuria or hematuria Musculoskeletal Musculoskeletal: Reports back pain; Denies neck pain Integumentary Denies abscess or rash Neurologic Neurologic: Reports headache(s); Denies weakness Allergic/Immunologic Allergic/Immunologic ED: Denies mouth swelling or urticaria EXAM Physical Exam Const Vital Signs: 03/18/23 05:50 Temperature 96.9 F L Temperature Source Temporal Pulse Rate 84 Respiratory Rate 20 H Blood Pressure 127/78 H Blood Pressure Mean 94 Pulse Ox 99 Oxygen Delivery Method Room Air Positive well nourished and well developed General Appearance ED: well developed and NAD HEENT Reports moist mucous membranes Neck supple and no JVD Chest Wall inspection of chest normal and palpation of chest normal Resp normal respiratory effort and clear to auscultation bilaterally Cardio regular rate and regular rhythm GI non-tender and non-distended Palpation: soft Back/Spine General Back: CVA tenderness right Extremity normal to inspection General Extremety ED: Negative for edema or tenderness General Extremity: Negative for edema Neuro oriented x3, CN's II-XII intact bilaterally and no sensory deficits noted Sensorium / Orientation: alert Motor Exam: strength 5/5 throughout Psych mental status grossly normal Skin no rashes or lesions noted, no wounds and skin turgor normal MDM MDM MDM Narrative Medical decision making narrative: Differential diagnosis includes ureteral calculus, pyelonephritis, electrolyte abnormality, and musculoskeletal strain CT scan of the abdomen pelvis will be obtained to assess for ureteral calculus. Urinalysis will be obtained to assess for urinary tract infection and hematuria. CBC will be obtained to assess for leukocytosis and anemia. Basic metabolic profile will be obtained to assess for electrolyte abnormality and renal function. Lab Data Attestation: I reviewed the patient's lab results. Lab results narrative: See history was reviewed and was essentially within normal limits. Basic metabolic profile was reviewed. BUN was slightly elevated at 24 and glucose was slightly elevated at 111. The remainder is within normal limits. Labs: Laboratory Results - last 24 hr 03/18/23 06:30 WBC 7.6 RBC 4.39 L Hgb 13.1 Hct 39.7 L MCV 90.4 MCH 29.8 MCHC 33.0 RDW Std Deviation 40.7 RDW Coeff of Bonifacio 12.5 Plt Count 198 MPV 9.8 Immature Gran % (Auto) 0.400 Neut % (Auto) 58.7 Lymph % (Auto) 29.1 [place]idan % (Auto) 10.0 Eos % (Auto) 1.3 Baso % (Auto) 0.5 Absolute Neuts (auto) 4.5 Absolute Lymphs (auto) 2.21 Nucleated RBC % 0 Sodium 141 Potassium 3.8 Chloride 109 H Carbon Dioxide 30.0 Anion Gap 2 L BUN 24 H Creatinine 0.76 Estim Creat Clear Calc 136.68 Est GFR (MDRD) Af Amer 152 Est GFR (MDRD) Non-Af 126 BUN/Creatinine Ratio 31.7 H Glucose 111 H Calcium 8.2 L Radiography Diagnostic Testing: Clinical Impression(s) from Imaging Studies Abdomen/Pelvis CT 03/18/23 06:16 IMPRESSION: 1. 2 punctate nonobstructing left renal calculi. 2. No hydronephrosis or obstructing ureteral stone. 3. Previous appendectomy. 4. No acute intra-abdominal abnormality. Electronically Signed: Elian Duong MD at 7:16 EST , CT scan of the abdomen pelvis was obtained. There is no ureteral calculus. There are nonobstructing left renal calculi. There is no acute abnormality. This was interpreted by the radiologist and was also independently reviewed by myself. Treatment and Re-Evaluation :: Patient was given IV fluids. Patient was advised of his findings. Patient was instructed to take Tylenol or ibuprofen as needed for pain. Patient was advised that this is most likely musculoskeletal pain. Patient was instructed to follow-up with his primary care physician in 5 to 7 days. Patient understood and was agreeable with the plan. All questions were answered. Discharge Plan Triage Chief Complaint: Flank Pain ED Provider: Allen Perez Dx/Rx/DC Orders Clinical Impression: Right flank pain Instructions: ED Flank Pain, Uncertain Cause Prescriptions: No Action NK Primary Care Provider: Care Physician,No Primary Referrals: Savanah Damon [Non-Staff] - 5-7 Days Care Physician,No Primary [Primary Care Provider] - Activity Restrictions/Additional Instructions: Take Tylenol or ibuprofen as needed for pain. Disposition Disposition: Home, Self Care
--- NOTE | 2023-03-18 06:16 | CT_ITS ---
EXAM: CT ABDOMEN AND PELVIS WITHOUT INTRAVENOUS CONTRAST CLINICAL INDICATION: Right flank pain TECHNIQUE: Helically acquired images were obtained of the abdomen and pelvis without intravenous contrast. This CT exam was performed using one or more of the following dose reduction techniques: automated exposure control, adjustment of the mA and/or kV according to patient size, and/or use of iterative reconstruction technique. RADIATION DOSE: Total DLP: 289.57 mGy-cm. COMPARISON: No relevant prior studies available. FINDINGS: LOWER THORAX: Visualized lung bases are clear. No coronary artery calcification is visualized. No significant pericardial effusion. ABDOMEN: LIVER: Unremarkable. Homogeneous. GALLBLADDER AND BILE DUCTS: Unremarkable. No calcified gallstones. No gallbladder distention or wall edema. No intra- or extrahepatic biliary ductal dilation. PANCREAS: Unremarkable. No focal cystic mass. SPLEEN: Unremarkable. Normal size without focal cystic or solid mass. ADRENALS: Unremarkable. No nodules. KIDNEYS AND URETERS: Kidneys are normal in size and shape. 2 punctate nonobstructing stones are noted within the left intrarenal collecting system. No right renal calculi. No hydronephrosis, perirenal stranding or obstructing ureteral stone identified. STOMACH AND BOWEL: Unremarkable. No stomach or bowel distention. No focal inflammatory change. PELVIS: APPENDIX: Previous appendectomy. BLADDER: The partially distended urinary bladder is unremarkable. REPRODUCTIVE: Unremarkable as visualized. No mass. ABDOMEN and PELVIS: INTRAPERITONEAL SPACE: Unremarkable. No ascites or other fluid collection. No free air. BONES/JOINTS: Unremarkable. No suspicious lytic or blastic abnormality. No acute osseous abnormality. SOFT TISSUES: Unremarkable. No discrete abdominal or pelvic wall hernia. VASCULATURE: Numerous calcified phleboliths are incidentally noted within the lower pelvis. LYMPH NODES: Unremarkable. No enlarged lymph nodes. CT/Abdomen/Pelvis without Cont IMPRESSION: 1. 2 punctate nonobstructing left renal calculi. 2. No hydronephrosis or obstructing ureteral stone. 3. Previous appendectomy. 4. No acute intra-abdominal abnormality. Electronically Signed: Elian Duong MD at 7:16 EST ,
[2023-03-18 06:43] LABS: Absolute Lymphocyte Count 2.21 X10^3/uL (0.83-4.51); Absolute Neutrophil Count 4.5 X10^3/uL (2.0-7.7); Basophil# 0.04 X10^3/uL; Basophil% 0.5 % (0-1); Eosinophils% 1.3 % (0-5); Hematocrit 39.7 % (40-54); Hemoglobin 13.1 g/dL (13.0-16.5); Lymphocyte # 2.21 X10^3/ul (0.83-4.51); Lymphocyte % 29.1 % (19-41); Mean Corpuscular Hgb 29.8 pg (27.0-32.0); Mean Corpuscular Volume 90.4 fL (80-94); Mean Platelet Vol. 9.8 fl (6.2-12.0); Monocyte# 0.76 X10^3/uL; NRBC Flagged by Analyzer 0 % (0-5); Neutrophil # 4.46 X10^3/uL (2.7-7.7); Neutrophil % 58.7 % (47-70); Platelet Count 198 K/mm3 (150-450); RBC Distribution Width CV 12.5 % (11.6-14.6); RBC Distribution Width SD 40.7 fl (35.1-43.9); Red Blood Count 4.39 M/mm3 (4.6-6.2); White Blood Count 7.6 K/mm3 (4.4-11.0)
[2023-03-18 06:57] LABS: Anion Gap 2 (5-15); BUN 24 mg/dL (7-18); BUN/Creat Ratio 31.7 RATIO (10-20); Calcium,Total 8.2 mg/dL (8.5-10.1); Chloride 109 mmol/L (98-107); Creatinine, Serum 0.76 mg/dL (0.70-1.30); EST Glomerular Filtration Rate 126 mL/min (>60); Est Glom Filt Rate - Afr Amer 152 mL/min (>60); Estimated Creatinine Clearance 136.68 ml/min; Glucose 111 mg/dL (74-106); Potassium 3.8 mmol/L (3.5-5.1); Sodium Level 141 mmol/L (136-145)
[2023-03-18] MEDS: 0.9% Normal Saline (1000mL) 1,000 ML 1000 ML IV (07:10)
[2023-03-18 07:26] VITALS: BP 127/79; PULSE 62; RESP 15; O2SAT 98
== END 2023-03-18 07:27 | disposition home or self-care (01) ==
PROVIDERS: Emergency Provider Emergency Medicine; Visit Provider Emergency Medicine
DX: R10.9 Unspecified abdominal pain (principal); R05.9 Cough, unspecified; M54.9 Dorsalgia, unspecified; F17.210 Nicotine dependence, cigarettes, uncomplicated
CPT/HCPCS: 74176; 80048; 85025; 99282

== ENCOUNTER 2023-05-15 14:06 | Emergency (ER) | payer MEDICAID, SELFPAY ==
[2023-05-15 14:07] VITALS: BP 135/98; PULSE 89; RESP 16; TEMP 36.4; O2SAT 98; BMI 21.7
--- NOTE | 2023-05-15 16:05 | EDS_ITS ---
HPI <BART Nayak - Last Filed: 05/15/23 18:46> History of Present Illness Chief Complaint: Lower Extremity Injury PFSH <BART Nayak - Last Filed: 05/15/23 18:46> [facility] Medical History Anxiety Asthma Depression Substance abuse Home Medications nystatin 100,000 unit/gram topical powder 1 applic topical BID #30 grams 05/15/23 [Rx Last Taken Unknown] Allergy/AdvReac Type Severity Reaction Status Date / Time ketorolac [From Toradol] Allergy Anaphylaxis Verified 05/15/23 14:09 Penicillins [PCN] Allergy Anaphylaxis Verified 05/15/23 14:09 Surgical History History of appendectomy History of skin graft Social History Smoking Status: Current every day smoker tobacco type: cigarettes ROS <BART Nayak - Last Filed: 05/15/23 18:46> ROS ED Constitutional Constitutional ED: Denies chills or fever(s) Cardiovascular Cardiovascular: Denies chest pain Respiratory/Chest Respiratory/Chest: Denies cough or dyspnea Gastrointestinal Gastrointestinal: Denies abdominal pain, nausea or vomiting Musculoskeletal Musculoskeletal: Reports other Details: pain to bilateral feet Integumentary Denies Abrasions Neurologic Neurologic: Denies paresthesias or weakness EXAM <BART Nayak - Last Filed: 05/15/23 18:46> Physical Exam Const Vital Signs: 05/15/23 14:07 Temperature 97.6 F L Temperature Source Temporal Pulse Rate 89 Respiratory Rate 16 Blood Pressure 135/98 H Blood Pressure Mean 110 Pulse Ox 98 Oxygen Delivery Method Room Air Positive well nourished, well developed and no apparent distress General Appearance ED: well developed HEENT Reports normocephalic and head/scalp atraumatic Mouth ED: Yes moist mucous membranes normal Eyes PERRL and EOMs intact bilaterally Neck full ROM and supple Chest Wall inspection of chest normal Resp normal respiratory effort and clear to auscultation bilaterally Cardio regular rate and regular rhythm GI soft to palpation, non-tender, non-distended and no masses Back/Spine normal ROM and normal to inspection Extremity full ROM Extremity Narrative: Erythema to the plantar aspect of the bilateral feet. Some peeling to the bottom of the right foot and in between the toes bilaterally. No open wounds, bleeding, no purulent discharge, no cellulitis or signs of infection. Bilateral DP pulse 2+, good capillary refill, sensation intact Neuro oriented x3, CN's II-XII intact bilaterally, moves all extremities, no focal motor deficits and no sensory deficits noted Sensorium / Orientation: awake and alert Psych mental status grossly normal and thought process normal <Dr. Allen Perez, - Last Filed: 05/16/23 00:24> Physical Exam Const Vital Signs: 05/15/23 14:07 Temperature 97.6 F L Temperature Source Temporal Pulse Rate 89 Respiratory Rate 16 Blood Pressure 135/98 H Blood Pressure Mean 110 Pulse Ox 98 Oxygen Delivery Method Room Air MDM <BART Nayak - Last Filed: 05/15/23 18:46> [facility] MDM Narrative Medical decision making narrative: Patient presenting for what appears to be tinea pedis to his bilateral feet. There are no open wounds to his feet or signs of infection, there is no bleeding. Patient reports that he is currently homeless and at times his feet get wet but he now has more heavy-duty boots to wear. He will be be given nystatin powder. I have also given him a PCP referral. He will be discharged in stable condition and is comfortable with plan. <Dr. Allen Perez, - Last Filed: 05/16/23 00:24> [facility] Treatment and Re-Evaluation Narrative: I have personally performed a face to face assessment of the patient and have reviewed the SONIA Note. I performed a substantive portion of the visit including all aspects of the following. My pabon findings include: History: Patient presents with a rash and pain to his feet that have been getting worse for the past several months. Patient states it is gradually g etting worse. Patient states his pain is worse with ambulation. Patient states his feet chronically get wet because he is homeless. Patient describes his pain as sharp. Patient admits to some tingling but denies any weakness. Patient denies any fevers or chills. Patient denies any discharge or drainage. Exam: Vital signs are stable. Patient is afebrile. Patient is in no acute distress. Examination of the feet reveals some mild tenderness over the toes. There is cracking of the skin between the digits of the feet bilaterally. There is no erythema. There is no discharge or drainage noted. Sensation was intact to light touch in all digits. Capillary refill was less than 2 seconds in all digits. Medical Decision Making: Patient was advised that this is most likely tinea pedis. Patient was given a prescription for topical nystatin. Patient was instructed to try to keep his feet as dry as possible. Patient was instructed to follow-up with a primary care physician in 5 to 7 days. Patient understood and was agreeable with the plan. All questions were answered. Discharge Plan Triage Chief Complaint: Lower Extremity Injury ED Midlevel Provider: Jazmín Vincent ED Provider: Allen Perez Dx/Rx/DC Orders Clinical Impression: Tinea pedis Instructions: ED Athlete's Foot Prescriptions: New nystatin 100,000 unit/gram powder 1 applic topical BID Qty: 30 0RF Primary Care Provider: Care Physician,No Primary Referrals: Fany Jerez MD [Med Staff - Active Staff] - As Needed Care Physician,No Primary [Primary Care Provider] - Activity Restrictions/Additional Instructions: Return for any worsening of your symptoms. Please follow-up with PCP. Disposition Disposition: Home, Self Care Discharge Date/Time: 05/15/23 17:32
== END 2023-05-15 17:32 | disposition home or self-care (01) ==
PROVIDERS: Emergency Provider Emergency Medicine; Visit Provider Emergency Medicine
DX: B35.3 Tinea pedis (principal); F17.210 Nicotine dependence, cigarettes, uncomplicated; R21 Rash and other nonspecific skin eruption; Z59.00 Homelessness unspecified; J45.909 Unspecified asthma, uncomplicated
CPT/HCPCS: 99282

== ENCOUNTER 2023-05-23 03:12 | Emergency (ER) | payer MEDICAID, SELFPAY ==
[2023-05-23 03:13] VITALS: BP 156/107; PULSE 85; RESP 15; TEMP 36.7; O2SAT 97; BMI 22.1
[2023-05-23 04:21] LABS: Absolute Lymphocyte Count 1.79 X10^3/uL (0.83-4.51); Absolute Neutrophil Count 2.1 X10^3/uL (2.0-7.7); Basophil# 0.02 X10^3/uL; Basophil% 0.5 % (0-1); Eosinophil# 0.08 X10^3/uL; Eosinophils% 1.9 % (0-5); Hematocrit 42.6 % (40-54); Hemoglobin 13.6 g/dL (13.0-16.5); Lymphocyte # 1.79 X10^3/ul (0.83-4.51); Lymphocyte % 41.5 % (19-41); Mean Corp Hgb Conc 31.9 g/dL (32-36); Mean Platelet Vol. 10.4 fl (6.2-12.0); Monocyte# 0.31 X10^3/uL; Monocyte% 7.2 % (0-10); NRBC Flagged by Analyzer 0 % (0-5); Neutrophil % 48.7 % (47-70); Platelet Count 168 K/mm3 (150-450); RBC Distribution Width CV 12.8 % (11.6-14.6); RBC Distribution Width SD 43.8 fl (35.1-43.9); Red Blood Count 4.53 M/mm3 (4.6-6.2); White Blood Count 4.3 K/mm3 (4.4-11.0)
--- NOTE | 2023-05-23 04:35 | EX.ED.DYSGE1 ---
HPI History of Present Illness Chief Complaint: Abd Pain Informant: patient Narrative Narrative: Patient is a 32-year-old male with past medical history of anxiety depression asthma and substance abuse. He states that he drank water out of a [place] earlier today and then roughly 8 hours later began with generalized abdominal discomfort and bouts of nausea and vomiting. States there is diarrhea associated with this. He denies any blood or discoloration to the emesis or diarrhea. He denies any known sick contacts. He states that he is concerned about a potential infection based on his exposure and therefore comes in for evaluation [facility] Medical History Anxiety Asthma Depression Substance abuse Home Medications nystatin 100,000 unit/gram topical powder 1 applic topical BID #30 grams 05/15/23 [Rx Last Taken Unknown] dicyclomine 20 mg tablet 20 mg PO 4X/DAY PRN PRN Abdominal pain/spasm #28 tabs 05/23/23 [Rx Last Taken Unknown] ondansetron 4 mg disintegrating tablet 4 mg PO TID PRN nausea and vomiting #21 tabs 05/23/23 [Rx Last Taken Unknown] triamcinolone acetonide 0.1 % lotion 1 applic topical TID #60 mL 05/23/23 [Rx Last Taken Unknown] Allergy/AdvReac Type Severity Reaction Status Date / Time ketorolac [From Toradol] Allergy Anaphylaxis Verified 05/15/23 14:09 Penicillins [PCN] Allergy Anaphylaxis Verified 05/15/23 14:09 Surgical History History of appendectomy History of skin graft Social History Smoking Status: Current every day smoker tobacco type: cigarettes ROS ROS ED Constitutional Constitutional ED: Denies chills or fever(s) ENT ENT ED: Denies sore throat Cardiovascular Cardiovascular: Denies chest pain Respiratory/Chest Respiratory/Chest: Denies cough or dyspnea Gastrointestinal Gastrointestinal: Reports abdominal pain, diarrhea, nausea, vomiting and other Genitourinary Genitourinary ED: Denies dysuria Musculoskeletal Musculoskeletal: Denies myalgias Integumentary Reports rash Neurologic Neurologic: Denies headache(s) Hematologic/Lymphatic Hematologic/Lymphatic: Denies easy bleeding or easy bruising EXAM Physical Exam Const Vital Signs: 05/23/23 03:13 Temperature 98.0 F Temperature Source Temporal Pulse Rate 85 Respiratory Rate 15 Blood Pressure 156/107 H Blood Pressure Mean 123 Pulse Ox 97 Oxygen Delivery Method Room Air Positive well nourished and well developed General Appearance ED: well developed; Negative for pallor HEENT Reports moist mucous membranes HEENT Narrative: No tongue or lip swelling. No oral lesions No airway edema or compromise No signs of infection noted in the posterior pharynx Eyes PERRL and EOMs intact bilaterally General Eye ED: Negative for scleral icterus Neck supple Neck Narrative: No nuchal rigidity or meningeal signs Resp normal respiratory effort and clear to auscultation bilaterally Cardio regular rate and regular rhythm Rate: other Other Details: Heart is regular rate and rhythm without murmurs rubs or gallops Radial and carotid pulses are equal and symmetric GI non-distended GI Narrative: Abdomen is soft and nondistended with normal active bowel sounds. There is mild diffuse pain on palpation without voluntary guarding or rigidity No pulsatile mass or fluid wave Auscultation: normoactive bowel sounds Palpation: soft Extremity normal to inspection Neuro oriented x3, CN's II-XII intact bilaterally and no sensory deficits noted Sensorium / Orientation: alert Motor Exam: strength 5/5 throughout Psych mental status grossly normal Skin Skin Narrative: Patient has a punctate erythematous rash across his lower abdomen near the area of his belt buckle and there are other similar regions along the bilateral forearms and in the lower legs. No involvement of the palms or soles. No pustule changes noted. The lesions do seem to be associated with hair follicles. General Skin Exam: Negative for jaundice or pallor MDM MDM MDM Narrative Medical decision making narrative: Patient presented to the ER hypertensive otherwise with stable vitals. Abdomen is soft and nonsurgical. Therefore I felt no need for emergent imaging studies. With the patient reporting generalized abdominal discomfort as well as bouts of nausea vomiting diarrhea there is concern for viral infection such as COVID or influenza versus [place] or rotavirus. There is also concern for biliary colic versus pancreatitis as he states he drank out of a fresh water stream there is concern for Giardia. Secondary to his basic labs were obtained and a stool study was ordered. Labs revealed no clinically significant findings. The patient had no bouts of vomiting or diarrhea while in the ER. On reevaluation he is resting comfortably and his abdomen remains soft and nonsurgical. Therefore at this time I do not feel there is need for further workup or imaging studies and he is otherwise safe for discharge. History & Record Review Discussion w/independent historian: Patient Lab Data Attestation: I reviewed the patient's lab results. Labs: Laboratory Results - last 24 hr 05/23/23 04:06 WBC 4.3 L RBC 4.53 L Hgb 13.6 Hct 42.6 MCV 94.0 MCH 30.0 MCHC 31.9 L RDW Std Deviation 43.8 RDW Coeff of [place] 12.8 Plt Count 168 MPV 10.4 Immature Gran % (Auto) 0.200 Neut % (Auto) 48.7 Lymph % (Auto) 41.5 H [place] % (Auto) 7.2 Eos % (Auto) 1.9 Baso % (Auto) 0.5 Absolute Neuts (auto) 2.1 Absolute Lymphs (auto) 1.79 Nucleated RBC % 0 Sodium 140 Potassium 3.9 Chloride 106 Carbon Dioxide 29.0 Anion Gap 5 BUN 15 Creatinine 0.76 Estim Creat Clear Calc 140.40 Est GFR (MDRD) Af Amer 152 Est GFR (MDRD) Non-Af 126 BUN/Creatinine Ratio 19.8 Glucose 86 Calcium 8.9 Total Bilirubin 0.50 Direct Bilirubin 0.16 AST 31 ALT 36 Alkaline Phosphatase 85 Total Protein 8.0 Albumin 3.9 Globulin 4.1 Lipase 44 Discharge Plan Triage Chief Complaint: Abd Pain ED Provider: Yrn Schroeder Dx/Rx/DC Orders Clinical Impression: Nonspecific abdominal pain, Folliculitis Instructions: Understanding Folliculitis, ED Gastroenteritis, Viral (Adult) Prescriptions: New ondansetron 4 mg tablet,disintegrating 4 mg PO TID PRN (Reason: nausea and vomiting) Qty: 21 0RF dicyclomine 20 mg tablet 20 mg PO 4X/DAY PRN PRN (Reason: Abdominal pain/spasm) Qty: 28 0RF triamcinolone acetonide 0.1 % lotion 1 applic topical TID Qty: 60 1RF No Action nystatin 100,000 unit/gram powder 1 applic topical BID Qty: 30 0RF Primary Care Provider: Care Physician,No Primary Referrals: Terry Hagen MD [STAFF PHYSICIAN] - Care Physician,No Primary [Primary Care Provider] - Activity Restrictions/Additional Instructions: Please return to the ER should you have any further concerns and use the medication as prescribed to control your symptoms Disposition Disposition: Home, Self Care Capacity [employer] Reflex Medical hold order details:: IF a medical hold is selected below, a suggested order for a MEDICAL HOLD will reflex upon signing the document. Next of kin: [place] law dictates a PRIORITY LIST for identifying legal decision-maker/legal next of kin in the following order (LNOK): 1st: The patient?s legal guardian, if any 2nd: The patient's spouse (if status is questionable, consult Risk Management) 3rd: The patient?s adult child(jer) (majority, if multiple children) 4th: The patient?s parents 5th: The patient?s adult siblings (majority, if multiple children siblings)
[2023-05-23] MEDS: 0.9% Normal Saline (1000mL) 1,000 ML 999 ML IV (04:38)
[2023-05-23 04:39] LABS: AST(SGOT) 31 U/L (15-37); Alanine Aminotransfer ALT/SGPT 36 U/L (16-61); Albumin, Serum 3.9 g/dL (3.2-5.0); Alkaline Phosphatase 85 U/L (45-117); Anion Gap 5 (5-15); BUN 15 mg/dL (7-18); BUN/Creat Ratio 19.8 RATIO (10-20); Bilirubin, Direct 0.16 mg/dL (0.00-0.30); Calcium,Total 8.9 mg/dL (8.5-10.1); Chloride 106 mmol/L (98-107); Creatinine, Serum 0.76 mg/dL (0.70-1.30); EST Glomerular Filtration Rate 126 mL/min (>60); Est Glom Filt Rate - Afr Amer 152 mL/min (>60); Globulin 4.1 g/dL (2.2-4.2); Glucose 86 mg/dL (74-106); Lipase 44 U/L (13-75); Potassium 3.9 mmol/L (3.5-5.1); Sodium Level 140 mmol/L (136-145)
[2023-05-23] MEDS: Dicyclomine 20 MG/2 ML Vial IM (04:44)
== END 2023-05-23 08:50 | disposition home or self-care (01) ==
PROVIDERS: Emergency Provider Emergency Medicine; Visit Provider Emergency Medicine
DX: R10.84 Generalized abdominal pain (principal); R11.2 Nausea with vomiting, unspecified; L73.9 Follicular disorder, unspecified; R19.7 Diarrhea, unspecified; Z11.52 Encounter for screening for COVID-19; J45.909 Unspecified asthma, uncomplicated; F17.210 Nicotine dependence, cigarettes, uncomplicated
CPT/HCPCS: 80048; 80076; 83690; 85025; 87631; 96360; 96372; 99283; J7030; A4216

== ENCOUNTER 2023-07-01 04:13 | Emergency (ER) | payer MEDICAID, SELFPAY ==
[2023-07-01 04:14] VITALS: BP 169/90; PULSE 99; RESP 18; TEMP 35.9; O2SAT 99
[2023-07-01 04:25] VITALS: BMI 20.7
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
[2023-07-01] MEDS: Acetaminophen 500 MG Tablet 1000 MG PO (04:49)
[2023-07-01 05:06] VITALS: BP 167/91; PULSE 80; RESP 18; TEMP 36.1; O2SAT 97
== END 2023-07-01 05:08 | disposition home or self-care (01) ==
PROVIDERS: Emergency Provider Emergency Medicine; Visit Provider Emergency Medicine
DX: T69.1XXA Chilblains, initial encounter (principal); X31.XXXA Exposure to excessive natural cold, initial encounter; B35.3 Tinea pedis; M25.512 Pain in left shoulder; M25.511 Pain in right shoulder; F17.210 Nicotine dependence, cigarettes, uncomplicated; Z59.00 Homelessness unspecified
CPT/HCPCS: 99282

== ENCOUNTER 2025-04-10 10:47 | Emergency (ER) | payer MEDICAID, SELFPAY ==
[2025-04-10 10:48] VITALS: BP 129/83; PULSE 78; RESP 18; TEMP 36.4; O2SAT 99
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
[2025-04-10 12:43] VITALS: BP 141/80; PULSE 79; RESP 18; TEMP 36.4; O2SAT 99
== END 2025-04-10 12:44 | disposition home or self-care (01) ==
PROVIDERS: Emergency Provider Emergency Medicine; Visit Provider Emergency Medicine
DX: S06.0X0A Concussion without loss of consciousness, initial encounter (principal); S20.211A Contusion of right front wall of thorax, initial encounter; V19.9XXA Pedal cyclist (driver) (passenger) injured in unspecified traffic accident, initial encounter; F17.210 Nicotine dependence, cigarettes, uncomplicated
CPT/HCPCS: 70450; 71101; 99283; A4216